=== PATIENT | female | born 1960 | race African-American/Black ===

== ENCOUNTER 2016-12-24 22:16 | Emergency (ER) | payer SELFPAY ==
[2016-12-24] MEDS ORDERED: Tetracaine 0.5% OPHTH SOLN/PF 4 ML BOT ONE (22:32)
[2016-12-24] MEDS ORDERED: Gentamicin Ophth Ointment 0.3% 3.5 gm Tube ONE (22:50)
[2016-12-24] MEDS ORDERED: HYDROcodone/Acetaminophen 10/325 mg Tablet ONE (23:13)
[2016-12-24] MEDS ORDERED: Ibuprofen 800 MG TAB ONE (23:13)
[2016-12-24] MEDS ORDERED: Ibuprofen 600 MG TAB ONE (23:14)
--- NOTE | 2016-12-24 23:45 | PICIS ---
[facility] EMERGENCY RECORD TRIAGE (SatDec 24, 2016 22:27 JDEA) TRIAGE NOTES: pt in for eye irritation to both eyes, states no vision changes. (SatDec 24, 2016 22:27 JDEA) PATIENT: NAME: Judi Dykes, AGE: 56, GENDER: female, : Sat1960, TIME OF GREET: SatDec 24, 2016 22:17, PREFERRED LANGUAGE: [place] Island[place], ETHNICITY: Not or , FALL RISK: NO, ECODE BILLING MAP: [facility], SSN: [id number], Zip Code: [address], KG WEIGHT: 73.48, PHONE: , , , PERSON ID: [id number], PCP: MD Almanza Olayemi. (SatDec 24, 2016 22:27 JDEA) COMPLAINT: IRRITATION IN EYES. (SatDec 24, 2016 22:27 JDEA) ADMISSION: URGENCY: 4 Non Urgent, ADMISSION SOURCE: Home, TRANSPORT: Walk-in, BED: TRIAGE. (SatDec 24, 2016 22:27 JDEA) IMMUNIZATIONS: Flu vaccine up to date, Tetanus immunization up to date, Pneumococcal vaccine not up to date. (22:38 JDEA) TRIAGE SCREENING: Patient denies suicidal ideation, Patient denies presence of domestic violence. (22:38 JDEA) LMP: LMP: Not Applicable. (22:38 JDEA) PROVIDERS: TRIAGE NURSE: Cristine Metz RN. (SatDec 24, 2016 22:27 JDEA) VITAL SIGNS: BP 177/91, Pulse 86, Resp 18, Pain 8, O2 Sat 100, on Room Air, Time 12/24/2016 22:21. (22:21 JDEA) PREVIOUS VISIT ALLERGIES: Iodides. (SatDec 24, 2016 22:27 JDEA) Iodides. (22:38 JDEA) KNOWN ALLERGIES nkda CURRENT MEDICATIONS (22:34 JDEA) famotidine: TABLET : Strength - 20 mg : ORAL Patient Dose: Oral once a day (in the morning). VITAL SIGNS (22:21 JDEA) VITAL SIGNS: BP: 177/91, Pulse: 86, Resp: 18, Pain: 8, O2 sat: 100 on Room Air, Time: 12/24/2016 22:21. NURSING ASSESSMENT: EYE (22:38 JDEA) CONSTITUTIONAL: Complex assessment performed, Patient arrives ambulatory, Gait steady, History obtained from patient, Patient appears comfortable, Patient cooperative, Patient alert, Oriented to person, place and time, Skin warm, Skin dry, Skin normal in color, Mucous membranes pink, Mucous membranes moist, Patient complains of bilat eye pain, pt in for complaints of eye irritation. denies chemical exposure. PAIN: burning pain, Both eyes, constant. EYES: Eye assessment findings include orbits normal, Eye lids normal, Conjunctiva normal, Sclera normal, Cornea clear, Iris normal, Pupils equally round and reactive to light, Visual acuity performed, Left eye: 20/40, Right eye: 20/50, Both eyes: 20/20, pt states normally utilizes glasses for reading. &a-1R&a+25V*p+0X*[id number]*c152B*c15G*c2P*p-0X&a-25V&a+1RName: Judi Dykes : F56 MedRec: [id number] AcctNum: [id number] Prepared: SatDec 25, 2016 01:14 by Interface Page 1 of 5 pMD [facility] EMERGENCY RECORD NOTES: Patient tolerated procedure well. SAFETY: Side rails up, Cart/Stretcher in lowest position, Family at bedside, Call light within reach, Hospital ID band on. MEDICATION ADMINISTRATION SUMMARY Drug Name: *Southaven, Dose Ordered: 10 mg, Route: Oral, Status: Given, Time: 23:20 12/24/2016, Drug Name: ibuprofen, Dose Ordered: 600 mg, Route: Oral, Status: Given, Time: 23:10 12/24/2016, Drug Name: *Gentak, Dose Ordered: 1 pablo, Route: Eyes Both, Status: Given, Time: 23:00 12/24/2016, *Additional information available in notes, Detailed record available in Medication Service section. MEDICATION SERVICE Gentak: Order: Gentak (gentamicin sulfate) - Dose: 1 pablo : Eyes Both Schedule: Now Notes: I instilled to both eyes Ordered by: Ken Martell MD Entered by: Ken Martell MD SatDec 24, 2016 23:05 Documented as given by: Eliza Gray RN SatDec 24, 2016 23:00 Patient, Medication, Dose, Route and Time verified prior to administration. Amount given: #[id number], Site: Medication administered on the left side, Correct patient, time, route, dose and medication confirmed prior to administration, Patient advised of actions and side-effects prior to administration, Allergies confirmed and medications reviewed prior to administration, Administered by DR MARTELL, Advised not to ambulate without assistance, Patient in position of comfort, Cart in lowest position, Family at bedside. : Follow Up : CORRECTION TO CHARTING. ADMINISTERED TO BOTH EYES. (23:10 MD) ibuprofen: Order: ibuprofen - Dose: 600 mg : Oral Schedule: Now Ordered by: Ken Martell MD Entered by: Ken Martell MD SatDec 24, 2016 23:06 Documented as given by: Eliza Gray RN SatDec 24, 2016 23:10 Patient, Medication, Dose, Route and Time verified prior to administration. Amount given: 600 MG, Site: Medication administered P.O., Correct patient, time, route, dose and medication confirmed prior to administration, Patient advised of actions and side-effects prior to administration, Allergies confirmed and medications reviewed prior to administration, Patient in position of comfort, Cart in lowest position, Family at bedside. Southaven: Order: [place]aven (hydrocodone bitartrate/acetaminophen) - Dose: 10 mg : Oral Schedule: Now Notes: one tab now Ordered by: Ken Martell MD &a-1R&a+25V*p+0X*[id number]*c152B*c15G*c2P*p-0X&a-25V&a+1RName: Judi Dykes : F56 MedRec: [id number] AcctNum: [id number] Prepared: SatDec 25, 2016 01:14 by Interface Page 2 of 5 pMD [facility] EMERGENCY RECORD Entered by: Ken Martell MD SatDec 24, 2016 23:07 Documented as given by: Eliaz Gray RN SatDec 24, 2016 23:20 Patient, Medication, Dose, Route and Time verified prior to administration. Amount given: , Site: Medication administered P.O., Correct patient, time, route, dose and medication confirmed prior to administration, Patient advised of actions and side-effects prior to administration, Allergies confirmed and medications reviewed prior to administration, Patient in position of comfort, Cart in lowest position, Family at bedside. HPI EYE COMPLAINT (22:51 DHAM) CHIEF COMPLAINT: Denies pain, to bilateral eyes, Patient presents for evaluation of redness, to bilateral eyes. HISTORIAN: History provided by patient, Was sitting watching her soap opera 36 hours ago and felt an irritation in her left eye with excess tearing. This morning her right eye was involved as well. c/o pain and redness to both eyes tonight. no trauma nor chemical exposure that she is aware of. She reports 4 days of nasal congestion and runny nose and cough prior to the onset of her eye irritation. MECHANISM OF INJURY: Unknown. LOCATION: Symptoms are localized, most severe in bilateral eyes. QUALITY: Pain is sharp in nature, described as "like I have something in my eyes". SEVERITY: Current severity of pain rated as 8/10. TIME COURSE: Gradual onset of symptoms, 30, hours prior to arrival, Symptoms are worsening. ASSOCIATED WITH: Associated with crusting, No associated discharge, No associated facial pain, No associated fever, Associated with foreign body sensation, Associated with glasses use, No associated headache, Associated with tearing, Associated with upper respiratory infection, Associated with blurred vision. EXACERBATED BY: Exacerbating factors, blinking. RELIEVED BY: Patient's condition relieved by nothing. ROS (22:54 DHAM) CONSTITUTIONAL: Historian denies chills, denies fever, denies lethargy, denies night sweats. EYES: Historian reports eye pain, reports eye redness, denies eye discharge, denies itching, denies photophobia, reports tearing, reports vision changes. Patient wears glasses. ENT: Historian reports rhinorrhea, nasal congestion. CARDIOVASCULAR: Historian denies chest pain, denies diaphoresis, denies palpitations. RESPIRATORY: Historian denies cough, denies shortness of breath, &a-1R&a+25V*p+0X*[id number]*c152B*c15G*c2P*p-0X&a-25V&a+1RName: Judi Dykes : F56 MedRec: [id number] AcctNum: [id number] Prepared: Ilene Dec 25, 2016 01:14 by Interface Page 3 of 5 pMD [facility] EMERGENCY RECORD denies sputum, denies wheezing. GI: Historian denies abdominal pain, denies diarrhea, denies nausea, denies vomiting. SKIN: Historian denies rash, denies skin changes, denies skin lesions. NEUROLOGIC: Historian denies headache. PAST MEDICAL HISTORY (22:38 JDEA) MEDICAL HISTORY: Past medical history includes history of hyperlipidemia, high cholesterol, Past medical history includes history of hyperlipidemia, high cholesterol, Past medical history includes history of hypertension, which has been treated. FEMALE SURGICAL HISTORY: Surgical history of section, Surgical history of hysterectomy. SOCIAL HISTORY: Patient denies alcohol use, Patient denies drug use, Patient currently uses tobacco, smokes cigarettes, daily, Patient has smoked for 25 years, Patient smokes 1 pack per day, Lives at home, with family, Patient denies alcohol use, Patient denies drug use, Patient currently uses tobacco, smokes cigarettes. PHYSICAL EXAM (22:56 DHAM) CONSTITUTIONAL: Vital Signs Reviewed, Patient afebrile, Pulse normal, Blood pressure normal, Respiratory rate normal, Patient appears non toxic, Patient appears pain free, Patient alert and oriented to person, place and time, Nursing notes reviewed. HEAD: Head exam normal, Head exam included findings of head atraumatic, normocephalic, no raccoon eyes, Normal temporal artery exam. EYES: Eye exam included findings of eyelids normal to inspection, Pupils equally round and reactive to light, Extraocular muscles intact, Conjunctiva, injected bilaterally, not edematous, Sclera normal, Atraumatic, Fundoscopic exam normal, Eye exam included findings of anterior chamber clear, Fluorescein uptake normal, no conjunctival foreign body, no corneal foreign body, no corneal abrasion, no periorbital ecchymosis, no periorbital edema, no periorbital erythema, no lens dislocation, no nystagmus, Chalazion, No Hordeolum noted, Visual acuity:, Left eye: 20/40, Right eye: 20/50, Both eyes: 20/40, uncorrected, see nn. initially said she couldn't see the E but with encouragement she was as above., lids everted and no FB noted. ENT: Ear exam normal, Nose exam included findings of, clear rhinorrhea bilat nostrils, Pharynx exam normal, Uvula exam normal, Tonsil exam normal, Mouth exam normal, teeth normal, Sinus exam included findings of frontal sinuses normal, maxillary sinuses normal, no preauricular nodes. no mattering. no dentritic or other ulceration of the corneas. NECK: Neck exam included findings of normal range of motion, no meningeal signs, no cervical adenopathy. RESPIRATORY CHEST: Respiratory exam included findings of no respiratory distress, Breath sounds clear, No wheezing, No rales, No rhonchi. &a-1R&a+25V*p+0X*[id number]*c152B*c15G*c2P*p-0X&a-25V&a+1RName: Judi Dykes : F56 MedRec: [id number] AcctNum: [id number] Prepared: SatDec 25, 2016 01:14 by Interface Page 4 of 5 pMD [facility] EMERGENCY RECORD SKIN: Skin exam included findings of skin warm, dry, and normal in color, no rash. LYMPHATIC: Lymphatic exam normal. EVENTS TRANSFER: Triage to Emergency Triage. (SatDec 24, 2016 22:27 JDEA) Emergency Triage to Main ED -03. (22:50 JDEA) Removed from Emergency Main ED -03. (23:23 MDEB) DOCTOR NOTES TEXT: Pt's history and exam are consistent with viral conjunctivitis. I see no evidence of FB or hx of chemical irritation. with the bilat presentation I do not think glaucoma is likely either. see dci. (23:03 DHAM) gentak oint sample dispensed. (23:15 DHAM) PROBLEM LIST No recorded problems DIAGNOSIS (23:08 DHAM) FINAL: PRIMARY: UNS ACUTE CONJUNCTIVITIS BILATERAL, ADDITIONAL: upper respiratory infection. DISPOSITION PATIENT: Disposition Type: Discharge, Disposition: *Discharge Home. (23:08 DHAM) Patient left the department. (23:23 MDEB) INSTRUCTION (23:10 DHAM) DISCHARGE: CONJUNCTIVITIS, VIRAL (CHILD), UPPER RESP INFECTION NO ANTIBIOTIC TREATMENT ADULT. FOLLOWUP: MD Cami, Amy, [facility], [address] [place] [id number], . SPECIAL: Gentak ointment to each eye four times a day for 5 days Motrin 600mg every six hours as needed for pain Afrin nasal spray at bedtime for nasal congestion. Return or see your pcp or ophthalmology for worsening pain or visual changes or any other concerns. PRESCRIPTION No recorded prescriptions IMAGING (23:22 GEMA) *DISCHARGE INSTRUCTIONS RECEIPT: Image captured from scanner. *SUPPLY CHARGE SHEET: Image captured from scanner. ADMIN (SatDec 25, 2016 01:08 CHILO) DIGITAL SIGNATURE: MD Martell Darren. [place]: CHILO=MD Martell Darren JDEA=YUE Metz, Cristine RIBEIRO=YUE Gray, Eliza &a-1R&a+25V*p+0X*i0055H*c152B*c15G*c2P*p-0X&a-25V&a+1RName: Judi Dykes : F56 MedRec: [id number] AcctNum: [id number] Prepared: SatDec 25, 2016 01:14 by Interface Page 5 of 5 pMD MTDD
== END 2016-12-24 23:18 | disposition home or self-care (01) ==
LOC: MADERS 22:16
DX: H10.33 Unspecified acute conjunctivitis, bilateral (principal); J06.9 Acute upper respiratory infection, unspecified; E78.5 Hyperlipidemia, unspecified; E78.00 Pure hypercholesterolemia, unspecified; I10 Essential (primary) hypertension; F17.210 Nicotine dependence, cigarettes, uncomplicated; Z79.899 Other long term (current) drug therapy
CPT/HCPCS: 99282

== ENCOUNTER 2017-12-06 17:25 | Emergency (ER) | payer SELFPAY ==
[2017-12-06] MEDS ORDERED: Ketorolac Tromethamine 60 MG/2 ML VIAL ONE (18:07)
[2017-12-06 18:20] LABS: Bilirubin Negative (Negative); Blood, Urine Trace (Negative); Clarity Clear (Clear); Glucose, Urine (Dipstick) Negative (Negative); Leukocyte Negative (Negative); Nitrite Negative (Negative); Protein, Urine (Dipstick) Negative (Neg-Trace)
[2017-12-06 18:36] LABS: Bacteria/HPF Rare-Few HPF (None Seen); RBC/HPF 0-3 HPF (0-3); Squamous Epithelial 0-3 HPF (0-3)
== END 2017-12-06 18:33 | disposition home or self-care (01) ==
LOC: MADERS 17:25
DX: M54.41 Lumbago with sciatica, right side (principal); E78.00 Pure hypercholesterolemia, unspecified; I10 Essential (primary) hypertension; F17.210 Nicotine dependence, cigarettes, uncomplicated
CPT/HCPCS: 81003; 81015; 96372; J1885

== ENCOUNTER 2018-02-28 22:42 | Emergency (ER) | payer SELFPAY ==
[~2018-02-28 22:42] MED LIST: Sodium Chloride 0.9% 1,000 ML BAG ONE
[2018-03-01 00:46] LABS: #Basophils 0.1 thou/uL (0.0-0.2); #Eosinphils 0.2 thou/uL (0.0-0.7); #Monocytes 0.7 thou/uL (0.11-0.59); #Neutrophils 7.2 thou/uL (1.40-6.50); %Basophils 0.6 % (0.0-1.0); %Eosinophils 1.8 % (0.0-10.0); %Lymphocytes 19.8 % (21.0-51.0); %Neutrophils 70.8 % (42.0-75.0); Hemoglobin 11.9 g/dL (12.0-16.0); Mean Corpuscular HGB CONC 32.7 g/dL (32.0-36.0); Mean Corpuscular Hemoglobin 27.6 pg (27.0-31.0); Mean Corpuscular Volume 84.3 fl (81.0-99.0); Mean Platelet Volume 7.3 fL (7.4-10.4); Platelet Count 228 thou/uL (130-400); RBC Distribution Width 13.7 % (11.5-14.5); Red Blood Cell (RBC) Count 4.31 mill/uL (4.20-5.40); White Blood Cell (WBC) Count 10.1 thou/uL (4.8-10.8)
[2018-03-01] MEDS ORDERED: Morphine 10 MG/ML VIAL ONE (00:51)
[2018-03-01] MEDS ORDERED: Sterile Water 10 ML ONE (00:52)
[2018-03-01] MEDS ORDERED: Ondansetron HCl/PF 4 MG/2 ML Vial ONE (00:52)
[2018-03-01] MEDS ORDERED: Dexamethasone 10 MG/ML VIAL ONE (00:52)
[2018-03-01] MEDS ORDERED: Ketorolac Tromethamine 30 MG/ML VIAL ONE (00:52)
[2018-03-01] MEDS ORDERED: methylPREDNISolone Sod Succ/PF 125 MG/2 ML VIAL ONE (00:52)
[2018-03-01 00:55] LABS: PTT 27.7 SEC (22.9-36.1); Prothrombin Time 12.9 SEC (12.0-14.7)
[2018-03-01 00:59] LABS: Bilirubin Negative (Negative); Blood, Urine Negative (Negative); Clarity Clear (Clear); Glucose, Urine (Dipstick) Negative (Negative); Leukocyte Negative (Negative); Nitrite Negative (Negative); Protein, Urine (Dipstick) Negative (Neg-Trace); Specific Gravity, Urine 1.025 (1.005-1.030)
[2018-03-01] MEDS ORDERED: Ketorolac Tromethamine 30 MG/ML VIAL IVP SCH (01:00)
[2018-03-01] MEDS ORDERED: Ondansetron HCl/PF 4 MG/2 ML Vial SLOW IVP SCH (01:00)
[2018-03-01] MEDS ORDERED: Morphine 4 MG/ML VIAL SLOW IVP SCH (01:00)
[2018-03-01] MEDS ORDERED: Sodium Chloride 0.9% 1,000 ML IV SCH (01:00)
[2018-03-01] MEDS ORDERED: Dexamethasone 10 MG/ML VIAL SLOW IVP SCH (01:00)
[2018-03-01] MEDS ORDERED: methylPREDNISolone Sod Succ/PF 125 MG/2 ML VIAL IVP SCH (01:00)
[2018-03-01 01:04] LABS: Bacteria/HPF None Seen HPF (None Seen); RBC/HPF 0-3 HPF (0-3); Squamous Epithelial 0-3 HPF (0-3); WBC/HPF 0-3 HPF (0-3)
[2018-03-01 01:05] LABS: ALT (SGPT) 18 U/L (8-55); AST (SGOT) 25 U/L (5-34); Albumin 3.9 g/dL (3.5-5.0); Alkaline Phosphatase 77 U/L (40-150); Anion Gap 15 mmol/L (10-20); BUN (Urea Nitrogen) 17 mg/dL (9.8-20.1); Bilirubin, Total 0.4 mg/dL (0.2-1.2); CKMB 1.2 ng/mL (0-6.6); Calc. Creatinine Clearance 0 mL/min (70-130); Calcium 9.5 mg/dL (7.8-10.44); Chloride 108 mmol/L (98-107); Estimated GFR-MDRD 82; Globulin 4.8 g/dL (2.4-3.5); Glucose 114 mg/dL (70-105); Lipase 21 U/L (8-78); Potassium 5.4 mmol/L (3.5-5.1); Protein, Total 8.7 g/dL (6.0-8.3); Sodium 140 mmol/L (136-145); Troponin I Less than 0.010 ng/mL (< 0.028)
[2018-03-01 01:10] LABS: Carbon Dioxide 22 mmol/L (22-29)
[2018-03-01 01:13] LABS: Magnesium 2.5 mg/dL (1.6-2.6)
[2018-03-01 01:21] LABS: CK (CPK) 176 U/L (29-168)
--- NOTE | 2018-03-01 07:36 | RAD ---
AP VIEW CHEST: HISTORY: Chest pain. FINDINGS: AP view chest was obtained on 02/28/18. Comparison is made to previous exam from 03/01/08. AP view chest demonstrates EKG leads seen over the chest. The lungs are well aerated. Mild cardiome oneil is seen. No evidence of effusions, pneumonia, or pneumothorax seen. IMPRESSION: Mild cardiomegaly; otherwise, unremarkable AP view chest. POS: [facility]
== END 2018-03-01 03:05 | disposition home or self-care (01) ==
LOC: MADERS 22:42
DX: R07.81 Pleurodynia (principal); I10 Essential (primary) hypertension; F17.210 Nicotine dependence, cigarettes, uncomplicated
CPT/HCPCS: 71045; 80053; 81001; 82150; 82550; 82553; 83690; 83735; 83880; 84484; 85025; 85610; 85652; 85730; 87086; 93005; 94760; 96361; 96374; 96375; A4216; J1100; J1885; J2270; J2405; J2930; J7050

== ENCOUNTER 2023-06-30 22:17 | Emergency (ER) | payer OTHER ==
[2023-06-30] MEDS ORDERED: Ibuprofen 600 MG TAB ONE (23:18)
== END 2023-06-30 23:57 | disposition home or self-care (01) ==
LOC: MADERS 22:17
DX: J02.8 Acute pharyngitis due to other specified organisms (principal); H92.02 Otalgia, left ear; E78.00 Pure hypercholesterolemia, unspecified; I10 Essential (primary) hypertension; F17.210 Nicotine dependence, cigarettes, uncomplicated
CPT/HCPCS: 87081; 87430; 96372; 99283; J1040

== ENCOUNTER 2023-08-21 08:22 | Outpatient (CLI) | payer OTHER | END 2023-08-21 08:23 | disposition home or self-care (01) | LOC: MADRAD 08:22 | PROVIDERS: ATTEND Internal Medicine | DX: R07.89 Other chest pain (principal); J34.9 Unspecified disorder of nose and nasal sinuses | CPT/HCPCS: 70220; 71046 ==

== ENCOUNTER 2024-03-16 19:34 | Emergency (ER) | payer OTHER ==
[2024-03-16] MEDS ORDERED: Ketorolac Tromethamine 30 MG (1 mL) VIAL ONE (20:02)
[2024-03-16] MEDS ORDERED: Ampicillin/Sulbactam 3 GM VIAL ONE (20:02)
[2024-03-16] MEDS ORDERED: Dexamethasone 10 MG/ML VIAL ONE (20:02)
[2024-03-16] MEDS ORDERED: Sodium Chloride 0.9% 100 ML ONE (20:03)
[2024-03-16 20:21] LABS: #Basophils 0.1 thou/uL (0.0-0.2); #Eosinphils 0.2 thou/uL (0.0-0.7); #Lymphocytes 2.2 thou/uL (1.20-3.40); #Monocytes 0.9 thou/uL (0.11-0.59); #Neutrophils 7.4 thou/uL (1.40-6.50); %Basophils 0.8 % (0.0-1.0); %Eosinophils 1.5 % (0.0-10.0); %Lymphocytes 20.7 % (21.0-51.0); %Neutrophils 69.1 % (42.0-75.0); Hemoglobin 11.3 g/dL (12.0-16.0); Mean Corpuscular HGB CONC 30.6 g/dL (32.0-36.0); Mean Corpuscular Hemoglobin 26.8 pg (27.0-31.0); Mean Corpuscular Volume 87.5 fl (78.0-98.0); Mean Platelet Volume 7.6 fL (7.4-10.4); Platelet Count 227 10x3/uL (130-400); Red Blood Cell (RBC) Count 4.23 mill/uL (4.20-5.40); White Blood Cell (WBC) Count 10.7 10x3/uL (4.8-10.8)
[2024-03-16 20:38] LABS: Anion Gap 16 mmol/L (10-20); BUN (Urea Nitrogen) 16 mg/dL (9.8-20.1); Calc. Creatinine Clearance 0 mL/min (70-130); Calcium 9.2 mg/dL (7.8-10.44); Carbon Dioxide 19 mmol/L (23-31); Chloride 106 mmol/L (98-107); Estimated GFR 86; Glucose 87 mg/dL (80-115); Potassium 4.1 mmol/L (3.5-5.1); Sodium 137 mmol/L (136-145)
== END 2024-03-16 22:44 | disposition home or self-care (01) ==
LOC: MADERS 19:34
DX: K04.7 Periapical abscess without sinus (principal); E78.00 Pure hypercholesterolemia, unspecified; I10 Essential (primary) hypertension; F17.210 Nicotine dependence, cigarettes, uncomplicated; Z79.899 Other long term (current) drug therapy
CPT/HCPCS: 70486; 80048; 85025; 96365; 96375; J0295; J1100; J1885; J3490

== ENCOUNTER 2024-09-30 12:23 | Emergency (ER) | payer OTHER ==
[2024-09-30] MEDS ORDERED: Methocarbamol 500 MG TAB ONE (13:07)
[2024-09-30] MEDS ORDERED: Ketorolac Tromethamine 30 MG (1 mL) VIAL ONE (13:07)
[2024-09-30 13:21] LABS: Bilirubin Negative (Negative); Blood, Urine Negative (Negative); Clarity Clear (Clear); Glucose, Urine (Dipstick) Negative (Negative); Ketone, Urine Negative (Negative); Leukocyte Small (Negative); Nitrite Negative (Negative); Protein, Urine (Dipstick) Negative (Neg-Trace); Specific Gravity, Urine 1.015 (1.005-1.030); Urobilinogen 0.2 mg/dL (Less than 2); pH, Urine 6.5 (5.0-9.0)
[2024-09-30 13:36] LABS: Bacteria/HPF 1+ HPF (None Seen); CAUTI Indications for Culture Pelvic or flank pain; RBC/HPF None Seen HPF (0-3); Urine Culture Reflex No No
[2024-09-30 13:52] LABS: Band 4 % (5-11); Hematocrit 41.3 % (36.0-47.0); Hemoglobin 12.8 g/dL (12.0-16.0); Lymphocytes 19 % (21-51); MDiff Complete? YES; Manual Diff?? YES; Mean Corpuscular HGB CONC 31.1 g/dL (32.0-36.0); Mean Corpuscular Hemoglobin 27.7 pg (27.0-31.0); Mean Platelet Volume 7.5 fL (7.4-10.4); Monocytes 5 % (0-10); Neutrophil 64 % (42-75); Platelet Count 255 10x3/uL (130-400); RBC Distribution Width 14.4 % (11.5-14.5); RBC Morph Comment Within Normal Limits; Reactive Lymphocytes 8 % (0-10); Red Blood Cell (RBC) Count 4.64 mill/uL (4.20-5.40); White Blood Cell (WBC) Count 13.3 10x3/uL (4.8-10.8)
[2024-09-30 13:53] LABS: Platelet Adequacy Comment Appears Adequate
[2024-09-30 13:54] LABS: ALT (SGPT) 24 U/L (8-55); AST (SGOT) 12 U/L (5-34); Albumin 3.8 g/dL (3.4-4.8); Alkaline Phosphatase 74 U/L (40-110); Anion Gap 15 mmol/L (10-20); BUN (Urea Nitrogen) 15 mg/dL (9.8-20.1); Bilirubin, Total 0.4 mg/dL (0.2-1.2); Calc. Creatinine Clearance 0 mL/min (70-130); Calcium 9.9 mg/dL (7.8-10.44); Carbon Dioxide 23 mmol/L (23-31); Chloride 103 mmol/L (98-107); Estimated GFR 81; Globulin 4.2 g/dL (2.4-3.5); Glucose 99 mg/dL (80-115); Lipase 22 U/L (8-78); Potassium 4.3 mmol/L (3.5-5.1); Sodium 137 mmol/L (136-145)
== END 2024-09-30 14:33 | disposition home or self-care (01) ==
LOC: MADERS 12:23
DX: N39.0 Urinary tract infection, site not specified (principal); I10 Essential (primary) hypertension; E78.00 Pure hypercholesterolemia, unspecified; F17.210 Nicotine dependence, cigarettes, uncomplicated; Z55.6 Problems related to health literacy; Z79.899 Other long term (current) drug therapy
CPT/HCPCS: 36415; 74176; 80053; 81001; 83690; 85025; 85379; 96372; J1885